=== PATIENT | male | born 1935 | race Caucasian/White ===

== ENCOUNTER 2016-04-23 08:25 | Outpatient (CLI) | payer MEDICARE, BC ==
[2007-04-27 05:44] VITALS: BP 135/79
[~2016-04-23] VITALS: Ht 175.4 cm; Wt 97.7 kg
[~2016-04-23 08:25] MED LIST: ASPIRIN 81M81 MG/TA2 PO; CARDURA 8MG TAB8 MG PO; CO Q-1010 M1 PO; COREG 6.256.25 MG/TA PO; IMDUR 60MG60 MG/TAB PO; MULTI VITAMINS1 TAB PO; OMEGA 31000 MG; PLAVIX 75MG TAB75 MG PO; PRAVACHOL 20MG20 MG PO; PRILOSEC 20MG20 MG PO; VITAMIN C500 MG PO; VITAMIN D 400400 IU PO
[2016-04-23 09:11] LABS: HEMATOCRIT 45.8 % (42.0-52.0); HEMOGLOBIN 15.1 g/dl (13.5-18.0); MEAN CELL VOLUME 91 fl (80.0-100.0); MEAN CORPUSCULAR HEMOGLOBIN 30 pg (27.0-31.0); MEAN CORPUSCULAR HGB CONC 33 g/dl (33.0-37.0); PLATELET COUNT 141 K/mm3 (130-400); RED BLOOD COUNT 5.04 M/mm3 (4.20-5.60); REDCELL DISTRIBUTION WIDTH-CV 13.6 % (11.5-14.5); WHITE BLOOD COUNT 6.4 K/mm3 (4.8-10.8)
[2016-04-23] MEDS ORDERED: VASOTEC 2.2.5 MG/TAB PO (09:22)
[2016-04-23] MEDS ORDERED: LASIX 20MG TABL20 MG PO (09:22)
[2016-04-23] MEDS ORDERED: NITROSTAT0.4 MG/TAB SL (09:23)
[2016-04-23 09:33] LABS: CALCIUM 9.1 mg/dL (8.4-10.2); CREATININE, serum 1.07 mg/dL (0.66-1.25); POTASSIUM 4.5 mmol/L (3.4-5.0)
[2016-04-23 09:39] LABS: PROTHROMBIN TIME 11.1 SECONDS (9.7-12.8)
[2016-04-23 10:07] VITALS: BP 132/80
[2016-04-23 10:19] VITALS: BP 146/86; PULSE 75
[2016-04-23 10:30] VITALS: BP 136/78; PULSE 76
[2016-04-23 10:50] VITALS: BP 132/76; PULSE 70
[2016-04-23 11:09] VITALS: BP 126/78; PULSE 71
[2016-04-23] MEDS ORDERED: PEPCID40 MG PO (11:28)
[2016-04-23 11:40] VITALS: BP 132/75; PULSE 71
== END 2016-04-23 11:48 | disposition home or self-care (01) ==
LOC: EUO 08:25 → COL.RAD 08:30 → EUO 11:48
PROVIDERS: Internal Medicine Cardiovascular Disease
DX: I08.0 Rheumatic disorders of both mitral and aortic valves (principal); I25.10 Atherosclerotic heart disease of native coronary artery without angina pectoris; R94.31 Abnormal electrocardiogram [ECG] [EKG]; R93.1 Abnormal findings on diagnostic imaging of heart and coronary circulation
CPT/HCPCS: J2250; J2704; J7120

== ENCOUNTER 2016-06-17 08:33 | Inpatient (IN) | payer MEDICARE, BC ==
[2007-04-27 05:44] VITALS: BP 135/79
[~2016-06-17] VITALS: Ht 175.3 cm; Wt 97.9 kg
[~2016-06-17 08:33] MED LIST changes: +LASIX 20MG TABL20 MG PO; +NITROSTAT0.4 MG/TAB SL; +PEPCID40 MG PO; +VASOTEC 2.2.5 MG/TAB PO
[2016-06-17] MEDS ORDERED: FISH OIL1000 MG PO (09:59)
[2016-06-17 10:00] VITALS: BP 150/85; PULSE 69; TEMP 97.6
[2016-06-17] MEDS ORDERED: VITAMIN D1000 IU PO (10:00)
[2016-06-17] MEDS ORDERED: VITAMINC1000TA PO (10:00)
[2016-06-17] MEDS ORDERED: MULTI VITAMINS1 TAB PO (10:01)
[2016-06-17 10:11] LABS: CALCIUM 9.4 mg/dL (8.4-10.2); CREATININE, serum 1.03 mg/dL (0.66-1.25); POTASSIUM 4.3 mmol/L (3.4-5.0)
[2016-06-17 10:12] LABS: PROTHROMBIN TIME 11.6 SECONDS (9.7-12.8)
[2016-06-17 10:17] LABS: HEMOGLOBIN 14.7 g/dl (13.5-18.0); MEAN CELL VOLUME 92 fl (80.0-100.0); MEAN CORPUSCULAR HEMOGLOBIN 31 pg (27.0-31.0); MEAN CORPUSCULAR HGB CONC 33 g/dl (33.0-37.0); PLATELET COUNT 160 K/mm3 (130-400); RED BLOOD COUNT 4.79 M/mm3 (4.20-5.60); REDCELL DISTRIBUTION WIDTH-CV 13.3 % (11.5-14.5)
[2016-06-17 11:36] VITALS: BP 213/120; PULSE 78
[2016-06-17 19:15] VITALS: BP 133/75; PULSE 85; TEMP 98.2
[2016-06-17 20:39] VITALS: BP 133/75; PULSE 85; TEMP 98.2
[2016-06-17 23:03] VITALS: BP 119/68; PULSE 79; TEMP 98.7
[2016-06-18] VITALS (9 sets, daily range): BP systolic 100–145; BP diastolic 51–81; PULSE 61–864; TEMP 98–98.3
[2016-06-19 03:46] VITALS: BP 118/65; PULSE 82; TEMP 98.1
[2016-06-19 08:07] VITALS: BP 123/68; PULSE 85; TEMP 98.5
[2016-06-19] MEDS ORDERED: CEPHALEXIN500 M1 PO (11:09)
== END 2016-06-19 11:45 | disposition home or self-care (01) | DRG 227 ==
LOC: EUO 08:33 → COL.RAD 09:00 → MEDICAL 13:00 → EUO 06-18 08:30 → MEDICAL 06-19 11:45
PROVIDERS: Internal Medicine Cardiovascular Disease
PROC: 0JH609Z Insertion of Cardiac Resynchronization Defibrillator Pulse Generator into Chest Subcutaneous Tissue and Fascia, Open Approach (ICD-10-PCS; principal; 2016-06-17)
PROC: 02H63KZ Insertion of Defibrillator Lead into Right Atrium, Percutaneous Approach (ICD-10-PCS; 2016-06-17)
PROC: 02H43KZ Insertion of Defibrillator Lead into Coronary Vein, Percutaneous Approach (ICD-10-PCS; 2016-06-17)
PROC: 02HK3KZ Insertion of Defibrillator Lead into Right Ventricle, Percutaneous Approach (ICD-10-PCS; 2016-06-17)
PROC: 02WA0MZ Revision of Cardiac Lead in Heart, Open Approach (ICD-10-PCS; 2016-06-18)
DX: I25.5 Ischemic cardiomyopathy (principal); I50.22 Chronic systolic (congestive) heart failure; T82.120A Displacement of cardiac electrode, initial encounter; I25.10 Atherosclerotic heart disease of native coronary artery without angina pectoris; I11.0 Hypertensive heart disease with heart failure; I35.0 Nonrheumatic aortic (valve) stenosis; Z95.5 Presence of coronary angioplasty implant and graft; Z89.201 Acquired absence of right upper limb, unspecified level
CPT/HCPCS: OP; C1769; C1882; C1894; C1895; C1898; C1900; J0690; J1940; J2250; J2765; J3010; J7030; J7040; Q9967

== ENCOUNTER → 2018-04-28 | Outpatient (CLI) | payer MEDICARE, BC ==
[~2018-04-28] MED LIST changes: +CEPHALEXIN500 M1 PO; +FISH OIL1000 MG PO; +VITAMIN D1000 IU PO; +VITAMINC1000TA PO
== END ==
LOC: COL.RAD 07:41
DX: M25.512 Pain in left shoulder (principal)
CPT/HCPCS: J3301; Q9967

== ENCOUNTER → 2019-02-22 | Outpatient (CLI) | payer MEDICARE, BC | LOC: COL.RAD 12:30 | DX: M19.012 Primary osteoarthritis, left shoulder (principal) | CPT/HCPCS: J3301; Q9967 ==

== ENCOUNTER 2019-05-29 11:40 | Inpatient (IN) | payer MEDICARE, BC ==
[~2019-05-29] VITALS: Ht 175.3 cm; Wt 98.2 kg
[2019-09-01] VITALS (10 sets, daily range): BP systolic 103–140; BP diastolic 48–102; PULSE 78–89; TEMP 97.8–98.4
[2019-09-01] MEDS ORDERED: CENTRUM SILVER1 TAB PO (04:35)
[2019-09-01] MEDS ORDERED: GARLIC100 MG PO (04:36)
[2019-09-01] MEDS ORDERED: THE MEDICINE S200 M2 PO (04:36)
[2019-09-01] MEDS ORDERED: OSTEO-BI-FLEX 21 TAB PO (04:37)
[2019-09-01] MEDS ORDERED: MASON NATURAL600 MG PO (04:37)
[2019-09-01] MEDS ORDERED: PEPCID 20MG TAB20 MG PO (04:39)
[2019-09-02] VITALS (7 sets, daily range): BP systolic 105–158; BP diastolic 47–74; PULSE 73–82; TEMP 95.5–98.1
[2019-09-02] MEDS ORDERED: ASPI325T6 PO (11:03)
[2019-09-02] MEDS ORDERED: NORCO 325 MG-7.1 TAB PO (11:03)
[2019-09-02] MEDS ORDERED: ULTRAM 50MG TAB50 MG PO (11:04)
[2019-09-03 04:52] VITALS: BP 115/53; PULSE 73; TEMP 98.4
[2019-09-03 07:43] VITALS: BP 111/54; PULSE 75; TEMP 97.7
[2019-09-03 11:08] VITALS: BP 103/49; PULSE 76; TEMP 97.7
[2019-09-03 11:47] VITALS: BP 103/49; PULSE 76; TEMP 97.7
== END 2019-09-03 13:00 | DRG 483 ==
LOC: JCC 07-20 07:30
PROVIDERS: ADMIT Orthopaedic Surgery
PROC: 0RRK00Z Replacement of Left Shoulder Joint with Reverse Ball and Socket Synthetic Substitute, Open Approach (ICD-10-PCS; principal; 2019-09-01 07:30)
DX: M19.012 Primary osteoarthritis, left shoulder (principal); E11.9 Type 2 diabetes mellitus without complications; K21.9 Gastro-esophageal reflux disease without esophagitis; I12.9 Hypertensive chronic kidney disease with stage 1 through stage 4 chronic kidney disease, or unspecified chronic kidney disease; N18.3 Chronic kidney disease, stage 3 (moderate); Z89.9 Acquired absence of limb, unspecified
CPT/HCPCS: A4314; A4619; A9284; C1713; C1776; J0690; J1100; J2250; J2370; J2704; J2795; J3010; J3370

== ENCOUNTER 2019-11-25 17:48 | Emergency (ER) | payer MEDICARE, BC ==
[2007-04-27 05:44] VITALS: BP 135/79
[~2019-11-25] VITALS: Ht 175.3 cm; Wt 95.3 kg
[~2019-11-25 17:48] MED LIST changes: +ASPI325T6 PO; +CENTRUM SILVER1 TAB PO; +GARLIC100 MG PO; +MASON NATURAL600 MG PO; +NORCO 325 MG-7.1 TAB PO; +OSTEO-BI-FLEX 21 TAB PO; +PEPCID 20MG TAB20 MG PO; +THE MEDICINE S200 M2 PO; +ULTRAM 50MG TAB50 MG PO
[2019-11-25 17:49] VITALS: TEMP 97.8
[2019-11-25 18:50] VITALS: BP 118/77; PULSE 93
== END 2019-11-25 18:55 | disposition home or self-care (01) ==
LOC: COL.ER 17:48
DX: S01.01XA Laceration without foreign body of scalp, initial encounter (principal); Z79.82 Long term (current) use of aspirin; Z79.02 Long term (current) use of antithrombotics/antiplatelets; W22.8XXA Striking against or struck by other objects, initial encounter; W06.XXXA Fall from bed, initial encounter; Y92.009 Unspecified place in unspecified non-institutional (private) residence as the place of occurrence of the external cause

== ENCOUNTER 2020-08-21 06:51 | Day surgery (SDC) | payer MEDICARE, BC ==
[~2020-08-21] VITALS: Ht 175.3 cm; Wt 100.0 kg
[2020-08-21] VITALS (222 sets, daily range): BP systolic 114–141; BP diastolic 73–96; PULSE 63–80; TEMP 97.5–98.4; O2SAT 81–100
[2020-08-21 08:04] LABS: HEMATOCRIT 46.2 % (42.0-52.0); HEMOGLOBIN 15.3 g/dl (13.5-18.0); MEAN CELL VOLUME 95 fl (80.0-100.0); MEAN CORPUSCULAR HEMOGLOBIN 32 pg (27.0-31.0); MEAN CORPUSCULAR HGB CONC 33 g/dl (33.0-37.0); MEAN PLATELET VOLUME 8.8 fl (7.4-10.4); PLATELET COUNT 128 K/mm3 (130-400); RED BLOOD COUNT 4.85 M/mm3 (4.20-5.60); REDCELL DISTRIBUTION WIDTH-CV 13.6 % (11.5-14.5)
[2020-08-21 08:11] LABS: PROTHROMBIN TIME 10.9 SECONDS (9.7-12.8)
[2020-08-21] MEDS ORDERED: DEMADEX 20MG20 M1 PO (08:12)
[2020-08-21] MEDS ORDERED: VITAMINC1000TA PO (08:13)
[2020-08-21 08:14] LABS: CALCIUM 8.9 mg/dL (8.4-10.2); CREATININE, serum 1.53 (0.66-1.25)
[2020-08-21] MEDS ORDERED: MASON NATURAL1000 M1 PO (08:14)
[2020-08-21] MEDS ORDERED: MASON NATURAL600 MG PO (08:14)
--- NOTE | 2020-08-21 08:44 | NUR ---
Dr Wallace informed of GFR 43 no mucomyst ordered, fluids started at 100cc/hr
--- NOTE | 2020-08-21 09:29 | NUR ---
SEE MERGE FOR ALL MEDICATION ADMINSTRATION TIMES, INTRA AND POST SEDATION ASSESSMENT
--- NOTE | 2020-08-21 10:45 | NUR ---
Scant bright red drainage on gauze to right groin access site - small quater size hematoma present - pt asymptomatic, light manual pressure applied - hematoma reduced. Cathlab team notified of hematoma.
--- NOTE | 2020-08-21 13:07 | NUR ---
First visit from the malter operator. No needs right now.
--- NOTE | 2020-08-21 15:48 | NUR ---
MD Rodrigo notified: pt experiencing 8-10/10 lower back pain, short run of a wide complex tachycardia, and groin site since last check has large amount of blood. MD Rodrgio and XOCHITL Escoto at bedside within 3min. Dressing removed revealing slow ooze from access site. Per MD Rodrigo: manual pressure apllied for 15min, SafeGuard Device applied, sand bag placed on site, and 4 hours of flat time to begin now. Prior to this event, pt has been comfortably sleeping and has had head of bed at 0 degrees since [facility]. PRN Fentanyl working well for pt's backpain - pt also stating pt has chronic back pain and "this type of back pain feels like it usually does. I have my put some BioFreeze ointment and it helps" MD Rodrigo aware of all aforementioned information.
[2020-08-22] VITALS (238 sets, daily range): BP systolic 111–124; BP diastolic 68–80; PULSE 60–74; TEMP 98.1–98.4; O2SAT 82–99
[2020-08-22 05:42] LABS: BASO # 0.1 (0.0-0.2); BASO % 0.6 % (0.0-2.0); EOS # 0.1 (0.0-0.7); EOS % 1.8 % (0-4.0); GRAN % 76.3 % (42.2-75.2); HEMATOCRIT 44.1 % (42.0-52.0); HEMOGLOBIN 14.2 g/dl (13.5-18.0); LYMPH # 0.9 (1.2-3.4); LYMPH % 11.4 % (20.0-51.0); MEAN CELL VOLUME 97 fl (80.0-100.0); MEAN CORPUSCULAR HEMOGLOBIN 31 pg (27.0-31.0); MEAN CORPUSCULAR HGB CONC 32 g/dl (33.0-37.0); MEAN PLATELET VOLUME 8.6 fl (7.4-10.4); MONO # 0.8 (0.1-0.6); MONO % 9.6 % (1.7-9.3); PLATELET COUNT 118 K/mm3 (130-400); RED BLOOD COUNT 4.53 M/mm3 (4.20-5.60); REDCELL DISTRIBUTION WIDTH-CV 13.5 % (11.5-14.5)
[2020-08-22 05:54] LABS: CALCIUM 8.3 mg/dL (8.4-10.2); CREATININE, serum 1.33 (0.66-1.25)
[2020-08-22 06:09] LABS: POTASSIUM 4.1 mmol/L (3.4-5.0)
--- NOTE | 2020-08-22 07:15 | NUR ---
RECEIVED REPORT FROM XOCHITL DUVAL. PT SITTING UP EATING BREAKFAST. CALL LIGHT AND URINAL WITHIN REACH. VSS.
--- NOTE | 2020-08-22 08:42 | NUR ---
SW met with the patient to discuss discharge plan. The patient lives in [place] with his , Olivia ([id number]#[phone]). He reports independence with ADLs and does not have any DME. The patient's PCP is Dr. Alma Estrada and he receives his medications from [place] [facility]. The patient's DPOA-HC is in EMR and it designates his and his daughter, Magda Gustafson ([id number]#[phone]). The patient plans to return home with his upon discharge. No additional needs at this time. *Discharge plan: home with *
[2020-08-22] MEDS ORDERED: ASPIRIN E.C. 8181 MG PO (11:42)
--- NOTE | 2020-08-22 13:13 | NUR ---
Follow up visit from the tunnel drier operator. No needs right now.
== END 2020-08-22 13:30 | disposition home or self-care (01) ==
LOC: COL.CAR 06:51 → ICU 11:16 → COL.CAR 08-22 13:30
PROVIDERS: Internal Medicine Cardiovascular Disease
DX: I25.110 Atherosclerotic heart disease of native coronary artery with unstable angina pectoris (principal); I25.5 Ischemic cardiomyopathy; I10 Essential (primary) hypertension; I35.8 Other nonrheumatic aortic valve disorders; E78.2 Mixed hyperlipidemia; Z20.822 Contact with and (suspected) exposure to COVID-19; Z95.810 Presence of automatic (implantable) cardiac defibrillator; Z89.211 Acquired absence of right upper limb below elbow; Z79.02 Long term (current) use of antithrombotics/antiplatelets; Z79.899 Other long term (current) drug therapy; Z80.9 Family history of malignant neoplasm, unspecified; Z95.5 Presence of coronary angioplasty implant and graft
CPT/HCPCS: OP; C1725; C1760; C1769; C1874; C1887; C1894; C9600; C9601; J0282; J0583; J0690; J1644; J2250; J3010; J7030; J7060; Q9967

== ENCOUNTER → 2020-10-11 | Outpatient (CLI) | payer MEDICARE, BC ==
[~2020-10-11] MED LIST changes: +ASPIRIN E.C. 8181 MG PO; +DEMADEX 20MG20 M1 PO; +KLOR-CON20 MEQ PO; +LASIX 40MG TABL40 MG PO; +MASON NATURAL1000 M1 PO; +PACERONE200 MG PO; +VITAMIN D31000 I1 PO; +ZAROXOLYN 2.52.5 MG PO
== END ==
LOC: COL.PUL 07:44
DX: I48.91 Unspecified atrial fibrillation (principal)

== ENCOUNTER 2020-11-07 09:32 | Day surgery (SDC) | payer MEDICARE, BC ==
[2020-11-07] VITALS (13 sets, daily range): BP systolic 119–131; BP diastolic 69–79; PULSE 64–89; TEMP 97.7
[~2020-11-07] VITALS: Ht 175.6 cm; Wt 102.0 kg
[~2020-11-07 09:32] MED LIST changes: -KLOR-CON20 MEQ PO; -LASIX 40MG TABL40 MG PO; -PACERONE200 MG PO; -VITAMIN D31000 I1 PO; -ZAROXOLYN 2.52.5 MG PO
--- NOTE | 2020-11-07 10:34 | NUR ---
Initial visit; Prayer request prior to surgical procedure. Patient wants answers as to whether he can be helped or not. Hector thanked Welt Rougher for offering prayer for strength, courage and emily. Welt Rougher wished him well. Hector's as well as Hector thanked Welt Rougher for visit and prayer.
[2020-11-07 10:50] LABS: HEMATOCRIT 38.4 % (42.0-52.0); HEMOGLOBIN 11.9 g/dl (13.5-18.0); MEAN CELL VOLUME 101 fl (80.0-100.0); MEAN CORPUSCULAR HEMOGLOBIN 31 pg (27.0-31.0); MEAN CORPUSCULAR HGB CONC 31 g/dl (33.0-37.0); MEAN PLATELET VOLUME 8.8 fl (7.4-10.4); PLATELET COUNT 142 K/mm3 (130-400)
[2020-11-07 10:51] LABS: INR 1.1 (0.8-3.0)
[2020-11-07 10:54] LABS: PARTIAL THROMBOPLASTIN TIME 26.6 SECONDS (26.0-37.0)
[2020-11-07 10:55] LABS: CALCIUM 8.5 mg/dL (8.4-10.2); POTASSIUM 3.5 mmol/L (3.4-5.0)
[2020-11-07] MEDS ORDERED: PACERONE200 MG PO (10:57)
[2020-11-07] MEDS ORDERED: LASIX 20MG TABL20 MG PO (10:57)
[2020-11-07 12:21] LABS: ARTERIAL BLD GAS TCO2 CT 31.4; ARTERIAL BLOOD GAS BASE EXCESS 0.4 (-2-2); ARTERIAL BLOOD GAS HCO3 29.3 meq/L (22-26); ARTERIAL BLOOD GAS PO2 79.6 mmHg (80-100); ARTERIAL BLOOD GAS pH 7.24 (7.35-7.45)
[2020-11-07 12:22] LABS: ARTERIAL BLOOD GAS PCO2 69.7 mmHg (35-45)
--- NOTE | 2020-11-07 12:30 | NUR ---
SEE MERGE FOR ALL MEDICATION ADMNIISTRATION TIMES, INTRA AND POST SEDATION ASSESSMENTS
--- NOTE | 2020-11-07 13:15 | NUR ---
pt to eu 11 via bed from agriculture laborer, pt has eyes closed but opens eyes when talked to. call light in reach. pt is in reverse trendelenburg. instructed to keep right leg straight, has history of back pain, new orders recieved.
[2020-11-07] MEDS ORDERED: LASIX 40MG TABL40 MG PO (13:40)
[2020-11-07] MEDS ORDERED: ZAROXOLYN 2.52.5 MG PO (13:41)
[2020-11-07] MEDS ORDERED: KLOR-CON20 MEQ PO (13:44)
--- NOTE | 2020-11-07 14:00 | NUR ---
pt dozes in between gron checks, states is not in any pain to back or having shortness of breath, 02 switched from open mask to NC remains at 2l/min to keep sats 88-89% per Dr order. pt took sips of water, scant drainage marked on 2x2 several times, light red, area remains soft
--- NOTE | 2020-11-07 15:00 | NUR ---
urinal in place, emptied 250cc and 200cc of yellow urine, pt has not c/o at this time
--- NOTE | 2020-11-07 16:00 | NUR ---
pt turned to side, lidocaine patch applied to middle of back where pt states pain is. also dressing changed to right groin due to drainage 1/2 dollar size. site without drainage or bleeding and remains soft, in room. pt sips on sprite
--- NOTE | 2020-11-07 18:30 | NUR ---
reviewed discharge inst. with , pt dozes off and on. Reviewed new meds, daughter is picking them up from pharmacy, reviewed care of site, reviewed activity restrictions with verbal understanding. also has appt with Dr Wallace in 1 week, pt remains the same, no changes
--- NOTE | 2020-11-07 19:15 | NUR ---
pt sat up in bed gradually with head of bed elevated first, no signs of bleeding from site, 02 turned off when pt sat on side of bed, sats at 85%, while assisted dressing. int d'cd intact. Pt sits on side of bed, more awake, put on own prosthesis to right arm. takes pudding and sprite.
--- NOTE | 2020-11-07 19:55 | NUR ---
pt up in w/c, daughter here to drive home, discharged via w/c to car at 2010
== END 2020-11-07 20:12 | disposition home or self-care (01) ==
LOC: COL.CAR 09:32
PROVIDERS: Internal Medicine Cardiovascular Disease
DX: I27.20 Pulmonary hypertension, unspecified (principal); I25.110 Atherosclerotic heart disease of native coronary artery with unstable angina pectoris; E78.5 Hyperlipidemia, unspecified; I10 Essential (primary) hypertension; Z20.822 Contact with and (suspected) exposure to COVID-19; Z95.1 Presence of aortocoronary bypass graft; Z95.810 Presence of automatic (implantable) cardiac defibrillator; Z89.211 Acquired absence of right upper limb below elbow
CPT/HCPCS: C1760; C1769; C1894; J2250; J3010

== ENCOUNTER 2020-12-25 07:19 | Outpatient (CLI) | payer MEDICARE, BC ==
[2007-04-27 05:44] VITALS: BP 135/79
[~2020-12-25] VITALS: Ht 175.3 cm; Wt 100.0 kg
[~2020-12-25 07:19] MED LIST changes: +KLOR-CON20 MEQ PO; +LASIX 40MG TABL40 MG PO; +PACERONE200 MG PO; +ZAROXOLYN 2.52.5 MG PO
[2020-12-25] MEDS ORDERED: KLOR-CON20 MEQ PO (07:39)
[2020-12-25] MEDS ORDERED: VITAMIN D31000 I1 PO (07:40)
[2020-12-25] MEDS ORDERED: ASPIRIN E.C. 8181 MG PO (08:14)
[2020-12-25] MEDS ORDERED: LASIX 40MG TABL40 MG PO (08:18)
[2020-12-25 08:19] LABS: HEMOGLOBIN 13.4 g/dl (13.5-18.0); MEAN CELL VOLUME 96 fl (80.0-100.0); MEAN CORPUSCULAR HEMOGLOBIN 31 pg (27.0-31.0); MEAN CORPUSCULAR HGB CONC 32 g/dl (33.0-37.0); MEAN PLATELET VOLUME 8.7 fl (7.4-10.4); PLATELET COUNT 150 K/mm3 (130-400); RED BLOOD COUNT 4.39 M/mm3 (4.20-5.60); REDCELL DISTRIBUTION WIDTH-CV 15.6 % (11.5-14.5)
[2020-12-25 08:27] LABS: PROTHROMBIN TIME 11.5 SECONDS (9.7-12.8)
[2020-12-25 08:32] LABS: CREATININE, serum 1.93 (0.66-1.25); POTASSIUM 4.9 mmol/L (3.4-5.0)
[2020-12-25 09:45] VITALS: BP 119/92; PULSE 89; TEMP 97.9
[2020-12-25 10:00] VITALS: BP 133/93; PULSE 87; TEMP 97.9
[2020-12-25 10:15] VITALS: BP 117/87; PULSE 87; TEMP 97.9
[2020-12-25 10:30] VITALS: BP 112/74; PULSE 89; TEMP 97.9
[2020-12-25 11:00] VITALS: BP 102/73; PULSE 85; TEMP 97.9
[2020-12-25 11:15] VITALS: BP 104/85; PULSE 85; TEMP 97.9
--- NOTE | 2020-12-25 11:15 | NUR ---
INT discontinued intact. Discharge instructions given
--- NOTE | 2020-12-25 11:30 | NUR ---
Transferred to private car by fidencio
== END 2020-12-25 11:30 | disposition home or self-care (01) ==
LOC: COL.RAD 07:19
PROVIDERS: Internal Medicine Cardiovascular Disease
DX: I35.0 Nonrheumatic aortic (valve) stenosis (principal); Z95.0 Presence of cardiac pacemaker
CPT/HCPCS: J2704